=== PATIENT | female | born 1995 | race Caucasian/White ===

== ENCOUNTER 2020-09-06 18:38 | Emergency (ER) | payer SELFPAY ==
[2020-09-06 21:10] VITALS: BP 94/62; PULSE 82; RESP 18; TEMP 36.2; O2SAT 99; BMI 18.1
[2020-09-06 21:31] LABS: MANUAL DIFF FLAG NO
[2020-09-06 21:33] LABS: Basophils Absolute Auto 0.1 X10*3/uL (0.0-0.2); Basophils Percent Auto 0.4 % (0-2); Eosinophils Percent Auto 0.2 % (0-4); Hematocrit 36.4 % (37-47); Hemoglobin 12.4 g/dl (12.0-16.0); Imm Gran Abs Auto 0.04 X10*3/uL (0.00-0.03); Imm Gran Pct Auto 0.3 % (0.0-0.4); Lymphocytes Absolute Auto 2.2 X10*3/uL (1.2-4.9); Lymphocytes Percent Auto 16.9 % (20-40); Mean Corpuscular HGB Conc 34.1 g/dl (31.0-35.0); Mean Corpuscular Hemoglobin 29.2 pg (27.0-33.0); Mean Corpuscular Volume 85.6 fL (80-98); Monocytes Absolute Auto 0.6 X10*3/uL (0.1-1.2); Monocytes Percent Auto 4.5 % (2-11); Neutrophils Absolute Auto 10.1 X10*3/uL (2.0-8.3); Neutrophils Percent Auto 77.7 % (45-73); Platelet Count 324 X10*3/uL (160-400); Red Blood Count 4.25 X10*6/uL (4.20-5.50); Red Cell Distribution Width 12.3 % (11.0-16.0)
[2020-09-06 22:06] LABS: Alanine Aminotransferase 12 U/L (0-31); Albumin Level 4.3 g/dL (3.5-5.0); Alkaline Phosphatase 63 U/L (39-117); Anion Gap 13 (12-20); Aspartate Amino Transferase 14 U/L (5-31); Bilirubin Total 0.2 mg/dL (0.0-1.0); Blood Urea Nitrogen 5 mg/dL (9-16); Calcium 8.4 mg/dL (8.4-10.2); Carbon Dioxide 24 mmol/L (22-29); Chloride 103 mmol/L (96-108); Creatinine Clr Calc Pharmacy 126.1; Estimated Glomerular Filt Rate > 60; Glucose Random 79 mg/dL (60-115); Potassium 3.7 mmol/l (3.3-5.1); Sodium 136 mmol/L (135-145); Total Protein 7.3 g/dL (6.5-8.0)
--- NOTE | 2020-09-06 22:23 | US_ITS ---
EXAMINATION: ULTRASOUND CLINICAL INFORMATION: Vaginal bleeding COMPARISON: None TECHNIQUE: Both transabdominal and endovaginal scanning was performed. FINDINGS: A gestational sac is present in the uterus along with a yolk sac and a pole. The fetus was active during the course of the exam and a normal heartbeat of 170 bpm was noted. The crown-rump length was 4.5 for CM corresponding to a gestational age of 11 weeks 3 days with an MO of 03/25/2021. There is a heterogeneous area posterior to the gestational sac that measures 4.9 x 2.1 x 5.7 cm which may represent an area of subchorionic hemorrhage. Neither ovary could be seen. A tiny amount of free fluid is present in the cul-de-sac US/US OB <= 14 weeks fetus IMPRESSION: 1. Normal-appearing fetus with gestational age estimated at 11 weeks 3 days with an MO of 03/25/2021. 2. Heterogeneous area posterior to the sac suggesting subchorionic hemorrhage.
--- NOTE | 2020-09-06 23:33 | ED.PREGNANCY ---
HPI - General Chief complaint: Vaginal Bleeding Stated complaint: vaginal bleeding Time Seen by Provider: 09/06/20 22:22 History of Present Illness HPI Narrative: Patient last menstrual period approximately 10 days prior. Today complaining of a gush of blood. Question more than a spotting. Less than a completely soaked pad. Patient subsequently had mild lower abdominal pain. Presented to the emergency department for further evaluation. She had 3 previous no problems no issues. Patient denies any fever chills. No cough no congestion or upper respiratory symptoms. No vomiting. Presented because of the bleeding. Patient unsure of her blood type. All of her children were born in [place]. Related Data Allergies Allergy/AdvReac Type Severity Reaction Status Date / Time No Known Allergies Allergy Verified 09/06/20 21:09 Review of Systems Review of Systems: Constitutional: No Weight loss, No Fever, No Chills, No Night Sweats, No Fatigue, No Malaise ENT/Mouth: No Hearing loss, No Ear Pain, No Nasal Congestion, No Sinus Pain, No Hoarseness, No sore throat, No Rhinorrhea, No Swallowing Difficulty Eyes: No Eye Pain, No Swelling, No Redness, No Foreign Body, No Discharge, No Vision Changes Cardiovascular: No Chest Pain, No SOB, No Dyspnea on Exertion, No Orthopnea, No Edema, No Palpitations Respiratory: No Cough, No Sputum, No Wheezing, No Smoke Exposure, No Dyspnea Gastrointestinal: No Nausea, No Vomiting, No Diarrhea, No Constipation, No abdominal Pain, No Hematochezia, No Melena Genitourinary: Positive bleeding, No Dysuria, No Urinary Frequency, No Hematuria, No Urinary Incontinence, No Urgency, No Flank Pain, No Urinary Flow Changes, No Hesitancy Musculoskeletal: No joint pain, No Myalgias, No Joint Swelling Skin: No Skin Lesions, No rash Neuro: No Weakness, No Numbness, No Paresthesias, No Loss of Consciousness, No Dizziness, No Headache Psych: No Anxiety/Panic, No Depression, No SI/HI/AH/VH, No Social Issues, Heme/Lymph: No Bruising, No Bleeding,No Lymphadenopathy Endocrine: No Polyuria, No Polydipsia, No Temperature Intolerance PMFSH Past Medical History Attestation statement: The following information was validated with the patient. Medical History No known health problems Social History Social History Advance Directives: No Advance Directives Information Provided: No Physical Exam Vital Signs: Vital Signs: Last Vital Signs Temp 97.1 F 09/06/20 21:10 Pulse 82 09/06/20 21:10 Resp 18 09/06/20 21:10 BP 94/62 09/06/20 21:10 Pulse Ox 99 09/06/20 21:10 Body Mass Index 18.1 Appearance: Alert. Oriented X3. No acute distress. Eyes: Pupils equal, round and reactive to light. ENT: Pharynx normal. Neck: Normal inspection. Neck supple. No lymph nodes noted. No crepitus CVS: Normal heart rate and rhythm. Pulses normal. Normal S1 and S2 Respiratory: No respiratory distress. Breath sounds normal. No Wheezing. No rales Abdomen: Soft and nontender. No rigidity. No distention. good BS x4 Skin: Skin warm and dry. Normal skin color. Normal skin turgor. Extremities: No lower extremity edema. Neurovascular intact to all extremities. No Lacerations. No Rash Neuro: Oriented X 3. No motor deficit. No sensory deficit. Moving all extermities. No slurred speech MDM - OB/Uterine Contractions MDM Narrative Medical decision making narrative: Patient has symptoms consistent with having threaten A/B. Patient's hemoglobin is 12.4. Had a gush of blood. Had some lower abdominal pain. Patient's ultrasound shows an intrauterine . No evidence for ectopic given this is a naturally conceived . Patient's pontis over 90,000. Patient's blood was typed and screened. Patient's blood type is O positive. Will discharge patient home. Lab Data Result diagrams: 09/06/20 21:25 09/06/20 21:25 Labs: Lab Results 09/06/20 09/06/20 09/06/20 Range/Units 21:25 21:25 23:47 WBC 13.0 H (4.8-10.8) X10*3/uL RBC 4.25 (4.20-5.50) X10*6/uL Hgb 12.4 (12.0-16.0) g/dl Hct 36.4 L (37-47) % MCV 85.6 (80-98) fL MCH 29.2 (27.0-33.0) pg MCHC 34.1 (31.0-35.0) g/dl RDW 12.3 (11.0-16.0) % Plt Count 324 (160-400) X10*3/uL MPV 11.0 (9.4-12.3) fL Immature Gran % (Auto) 0.3 (0.0-0.4) % Neut % (Auto) 77.7 H (45-73) % Lymph % (Auto) 16.9 L (20-40) % Chambers % (Auto) 4.5 (2-11) % Eos % (Auto) 0.2 (0-4) % Baso % (Auto) 0.4 (0-2) % Lymph # (Auto) 2.2 (1.2-4.9) X10*3/uL Chambers # (Auto) 0.6 (0.1-1.2) X10*3/uL Eos # (Auto) 0.0 (0.0-0.4) X10*3/uL Baso # (Auto) 0.1 (0.0-0.2) X10*3/uL Abs Immat Gran (auto) 0.04 H (0.00-0.03) X10*3/uL Absolute Neuts (auto) 10.1 H (2.0-8.3) X10*3/uL Absolute Nucleated RBC 0.000 (0.0-0.012) X10*3/uL Nucleated RBC % (auto) 0.0 (0.0-0.2) /100WBC Sodium 136 (135-145) mmol/L Potassium 3.7 (3.3-5.1) mmol/l Chloride 103 (96-108) mmol/L Carbon Dioxide 24 (22-29) mmol/L Anion Gap 13 (12-20) BUN 5 L (9-16) mg/dL Creatinine 0.64 (0.5-1.4) mg/dL Estim Creat Clear Calc 126.1 Estimated GFR > 60 Random Glucose 79 (60-115) mg/dL Calcium 8.4 (8.4-10.2) mg/dL Total Bilirubin 0.2 (0.0-1.0) mg/dL AST 14 (5-31) U/L ALT 12 (0-31) U/L Alkaline Phosphatase 63 (39-117) U/L Total Protein 7.3 (6.5-8.0) g/dL Albumin 4.3 (3.5-5.0) g/dL Beta HCG, Quant 60883 mIU/mL Blood Type O Positive Discharge Plan Discharge Clinical Impression: Threatened Patient Disposition: Home, Self-Care Referrals: Gilberto Ramirez MD [Physician] - 2 days
== END 2020-09-07 00:58 | disposition home or self-care (01) ==
PROVIDERS: Emergency Provider Emergency Medicine Emergency Medical Services
DX: O20.0 Threatened abortion (principal)
CPT/HCPCS: 36415; 76801; 80053; 84702; 85025; 86850; 86900; 86901; 99282; 99284

== ENCOUNTER 2022-11-04 13:17 | Outpatient (REF) | payer MEDICAID, SELFPAY ==
--- NOTE | ~2022-11-04 | XR_ITS ---
EXAMINATION: RIGHT WRIST WITH SCAPHOID. CLINICAL INFORMATION: Pain distal right wrist. COMPARISON: None TECHNIQUE: 4 views FINDINGS: There is normal maintained joint space in the right wrist. No visible acute fracture, dislocation or subluxation seen. Especially the scaphoid bone is normal. The soft tissues are normal. XR/XR wrist RT w scaphoid IMPRESSION: Unremarkable right wrist exam.
== END 2022-11-04 13:18 | disposition home or self-care (01) ==
LOC: HO.HMGCX 13:17
PROVIDERS: PCP Internal Medicine; Visit Provider Internal Medicine
DX: M25.531 Pain in right wrist (principal)
CPT/HCPCS: 73110